=== PATIENT | female | born 1980 | race Caucasian/White ===

== ENCOUNTER 2016-12-03 21:54 | Emergency (ER) | payer OTHER ==
[~2016-12-03] VITALS: Ht 175.3 cm; Wt 195.8 kg
[~2016-12-03 21:54] MED LIST: ALBUTEROL SULF8.5 GM IH; ALLEGRA ALLERG180 MG PO; ATARAX,VISTARIL25 MG PO; AVELOX400 MG PO; LEVAQUIN500 MG PO; METFORMIN HCL850 MG PO; MOTRIN600 MG PO; NAPROXEN500 MG PO; NASONEX17 GM BOTH NARES; PERCOCET 5/31 TABLET PO; PREDNISONE20 MG PO; ROBITUSSIN AC,T10 ML PO; TESSALON PERLE100 MG PO; ZOFRAN ODT4 MG PO
[2016-12-03] MEDS ORDERED: MOTRIN800 MG PO (23:19)
[2016-12-03 23:36] VITALS: BP 124/99
== END 2016-12-03 23:39 | disposition home or self-care (01) ==
LOC: EME 21:54
DX: M25.511 Pain in right shoulder (principal); Z91.81 History of falling; R03.0 Elevated blood-pressure reading, without diagnosis of hypertension; Z87.891 Personal history of nicotine dependence
CPT/HCPCS: 73030; 99281; 99284